=== PATIENT | male | born 2000 | race Hispanic/Latino ===

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

== ENCOUNTER 2021-05-30 18:43 | Emergency (ER) | payer BC ==
[~2021-05-30 18:43] MED LIST changes: +PERCOCET 5/325M1 TAB PO
[2021-05-30] MEDS ORDERED: HYDROCO/APAP1 TA9 PO (20:11)
[2021-05-30 20:41] VITALS: BP 157/84
== END 2021-05-30 20:38 | disposition home or self-care (01) | DRG 563 ==
LOC: ED 18:43
PROC: 2W3EX1Z Immobilization of Right Hand using Splint (ICD-10-PCS; principal; 2021-05-30)
DX: S62.306A Unspecified fracture of fifth metacarpal bone, right hand, initial encounter for closed fracture (principal); F17.200 Nicotine dependence, unspecified, uncomplicated; W18.30XA Fall on same level, unspecified, initial encounter; Y93.66 Activity, soccer